=== PATIENT | female | born 1990 | race Caucasian/White ===

== ENCOUNTER 2017-01-18 11:03 | Emergency (ER) | payer OTHER ==
[2017-01-18 11:09] VITALS: BP 123/96; PULSE 90; TEMP 98.3; BMI 38.7
--- NOTE | 2017-01-18 12:01 | PDOC ---
Attending Attestation - Resident Resident Name: Isai Phoenix - HPI HPI: 01/18/17 13:15 pt presents to the ED complaining of a two day history of frontal pressure. Denies fever, nausea, vomiting. also complains of positional vertigo. - Physicial Exam PE: 01/18/17 13:19 Exam is unremarkable. minimal tenderness over the maxillary sinuses. - Medical Decision Making 01/18/17 13:21 Patient presents to the ED with mild, non specific headache and mild vertigo. No concern for subarachnoid. no symptoms consistent with cellulitis. Will discharge home with motrin and meclizine.
[2017-01-18] MEDS ORDERED: diphenhydrAMINE HCL 50 MG CAPSULE PO ONE (12:03)
[2017-01-18] MEDS ORDERED: FLUTICASONE PROP 0.05% 16 GM NASAL SPRAY NS ONE (12:03)
[2017-01-18] MEDS ORDERED: OXYMETAZOLINE 0.05% NASAL SOLUTION 15 ML BOTTLE NS PRN (12:03)
[2017-01-18] MEDS ORDERED: diphenhydrAMINE HCL 25 MG CAPSULE (FP) PO ONE ×2 (12:18)
--- NOTE | 2017-01-18 12:29 | PDOC ---
History of Present Illness - General Chief Complaint: Headache Stated Complaint: HEADACHE Time Seen by Provider: 01/18/17 11:45 History Source: Patient, Engineering Systems Analyst Used (nurse) Exam Limitations: No Limitations - History of Present Illness Initial Comments: 01/18/17 12:23 The patient is a 26F with a PMH of vertigo and hypercholesterolemia who is presenting with 4 days of b/l headache which originates in the sinuses and radiates to the occiput. She describes the pain as a pressure that is associated with dizziness. ROS+: headache, vertiginous sx, photophobia ROS-: fever, chills, nausea, vomiting, changes in vision, weakness, tingling, numbness, abdominal pain, dysuria Allergies: NKDA Social: does not smoke, drink, or use recreational drugs Surgeries: cholecystectomy 3 years ago Past History - Past Medical History Allergies/Adverse Reactions: Allergies Allergy/AdvReac Type Severity Reaction Status Date / Time No Known Allergies Allergy Verified 01/18/17 11:06 Home Medications: Ambulatory Orders Meclizine HCl [Antivert -] 25 mg PO TID #21 tablet 01/18/17 Diabetes: Yes (border line) Seizures: Yes (x1) - Surgical History Cholecystectomy: Yes - Psycho/Social/Smoking Cessation Hx Anxiety: No Suicidal Ideation: No Smoking History: Never smoked Have you smoked in the past 12 months: No Information on smoking cessation initiated: No Hx Alcohol Use: No Drug/Substance Use Hx: No Substance Use Type: None Review of Systems - Review of Systems Able to Perform ROS?: Yes Is the patient limited Frisian proficient: Yes Constitutional: No: Chills, Fever HEENTM: Yes: Other (maxillary pain radiating to occiput). No: Blurred Vision Respiratory: No: Cough, Shortness of Breath Cardiac (ROS): No: Chest Pain, Lightheadedness ABD/GI: Yes: Other (abd) : No: Dysuria Neurological: Yes: Headache. No: Numbness, Tingling, Weakness *Physical Exam - Vital Signs Last Vital Signs Temp Pulse Resp BP Pulse Ox 98.3 F 90 18 123/96 100 01/18/17 11:06 01/18/17 11:06 01/18/17 11:06 01/18/17 11:06 01/18/17 11:06 - Physical Exam General Appearance: Yes: Appropriately Dressed, Obese. No: Apparent Distress HEENT: positive: Tonsillar Erythema (very mild), Other (tenderness to palpation over maxillary sinuses). negative: Scleral Icterus (R), Scleral Icterus (L), Tonsillar Exudate Neck: negative: Lymphadenopathy (R), Lymphadenopathy (L) Respiratory/Chest: positive: Lungs Clear, Normal Breath Sounds. negative: Respiratory Distress Cardiovascular: positive: Regular Rhythm, Regular Rate, S1, S2 Gastrointestinal/Abdominal: positive: Normal Bowel Sounds, Flat, Soft. negative : Tender Extremity: positive: Normal Inspection. negative: Swelling Integumentary: positive: Normal Color, Dry, Warm Neurologic: positive: Normal Mood/Affect, Normal Response ED Treatment Course - Medications Given in the ED: ED Medications Discontinued Medications Generic Name Dose Route Start Last Admin Trade Name Freq PRN Reason Stop Dose Admin Diphenhydramine HCl 50 mg 01/18/17 12:03 01/18/17 12:20 Benadryl - PO 01/18/17 12:04 50 mg ONCE ONE Administration Medical Decision Making - Medical Decision Making 01/18/17 12:38 Patient is a 26F with a hx of vertigo who presents with a headache and dizziness x 4 days. On the differential is vertigo exacerbation, sinusitis, migraine headaches. She was given nasal anti-allergy medications and benadryl. She was also given motrin and meclazine to combat her headache. 01/18/17 12:50 Patient states she is feeling much better after medication administration. She is ready for d/c. *DC/Admit/Observation/Transfer Diagnosis at time of Disposition: Headache - Discharge Dispostion Disposition: HOME Condition at time of disposition: Stable Admit: No - Prescriptions Prescriptions: Meclizine HCl [Antivert -] 25 mg PO TID #21 tablet - Referrals Referrals: Abeba Mattson MD [Primary Care Provider] - - Attestations Physician Attestion: 01/18/17 12:39 I, Dr. Isai Phoenix, attest that this document has been prepared under my direction and personally reviewed by me in its entirety. I further attest, that it accurately reflects all work, treatment, procedures and medical decision -making performed by me.
[2017-01-18] MEDS ORDERED: MECLIZINE HCL 25 MG TABLET (FP) PO ONE (12:32)
[2017-01-18] MEDS ORDERED: IBUPROFEN 400 MG TABLET (FP) PO ONE ×2 (12:32→12:40)
[2017-01-18] MEDS ORDERED: MECLIZINE HCL 25 MG TABLET (FP) ONE (12:40)
== END 2017-01-18 13:26 | disposition home or self-care (01) ==
LOC: JER 11:03
DX: R51 Headache (principal)
CPT/HCPCS: 99281-25

== ENCOUNTER 2017-06-28 13:41 | Emergency (ER) | payer OTHER ==
[2017-06-28 13:57] VITALS: BP 123/68; PULSE 101; TEMP 98.3; BMI 39.0
[2017-06-28] MEDS ORDERED: NAPROXEN 500 MG TABLET (FP) PO ONE (14:47)
[2017-06-28] MEDS ORDERED: NAPROXEN 500 MG TABLET (FP) ONE (14:51)
--- NOTE | 2017-06-28 14:54 | PDOC ---
History of Present Illness - General Chief Complaint: Pain Stated Complaint: WRIST SWELLING AND PAIN Time Seen by Provider: 06/28/17 14:37 History Source: Patient Exam Limitations: No Limitations - History of Present Illness Initial Comments: 06/28/17 15:28 Chief complaint: Right second pain for the last 3 days History of present illness: Patient is a 27 year old planning of pain to her right 2ND MCP joint minimal swelling 3 days. Patient does not remember any fall or injury. Patient reports the pain currently as a 7 out of 10 throbbing. Patient reports that last night pain was a 10 out of 10. Patient denies any chance of is on control pills. Patient does not have any decreased range of motion of her right hand or metacarpals or digits. Patient denies holding her phone or other items more in this hand even though this is her right hand is dominant. No numbness of her hand. Occurred: reports: other (3 days ) Severity: reports: severe (rt. 2nd mcp jt pain x 3 days ) Upper Extremity Pain Location: right: other (2nd mcp jt ) Method of Injury: reports: unknown Extremity Pain Location - Extremity Pain Location Extremity Pain Locations: right: other (2 nd mcp jt) Past History - Past Medical History Allergies/Adverse Reactions: Allergies Allergy/AdvReac Type Severity Reaction Status Date / Time No Known Allergies Allergy Verified 06/28/17 13:57 Home Medications: Ambulatory Orders Naproxen [Naprosyn -] 500 mg PO BID PRN #14 tablet MDD 2 06/28/17 COPD: No Diabetes: No Seizures: No - Surgical History Cholecystectomy: Yes - Suicide/Smoking/Psychosocial Hx Smoking History: Never smoked Have you smoked in the past 12 months: No Hx Alcohol Use: No Drug/Substance Use Hx: No Substance Use Type: None Review of Systems - Review of Systems Able to Perform ROS?: Yes Constitutional: No: Symptoms Reported HEENTM: No: Symptoms Reported Respiratory: No: Symptoms reported Cardiac (ROS): No: Symptoms Reported ABD/GI: No: Symptoms Reported : No: Symptoms Reported Musculoskeletal: Yes: Joint Pain (rt.2nd mcp jt), Joint Swelling (slight swelling rt.mcp jt ) Integumentary: No: Symptoms Reported Neurological: No: Symptoms reported *Physical Exam - Vital Signs Last Vital Signs Temp Pulse Resp BP Pulse Ox 98.3 F 101 H 20 123/68 100 06/28/17 13:54 06/28/17 13:54 06/28/17 13:54 06/28/17 13:54 06/28/17 13:54 - Physical Exam General Appearance: Yes: Appropriately Dressed Comments:: 06/28/17 14:51 radial pulse rt.. 4 + Extremity: positive: Normal Capillary Refill, Normal Range of Motion (rt. finger , rt. mcp jt ), Tender (rt. index mcp jt ), Swelling (minimal swelling rt.mcp jt ), Other (rt. index finger full range of motion, no erythema ). negative: Normal Inspection Integumentary: positive: Normal Color Neurologic: positive: Normal Response, Respond to painful stimul. negative: Numbness, Sensory Deficit (rt. hand ) ED Treatment Course - RADIOLOGY Radiology Studies Ordered: Category Date Time Status HAND- RIGHT [RAD] Stat Radiology 06/28/17 14:48 Ordered Medical Decision Making - Medical Decision Making 06/28/17 15:33 Patient is a 27 year old planning of pain to her right 2ND MCP joint minimal swelling 3 days. Patient does not remember any fall or injury. Patient reports the pain currently as a 7 out of 10 throbbing. Patient reports that last night pain was a 10 out of 10. Patient denies any chance of is on control pills. Patient does not have any decreased range of motion of her right hand or metacarpals or digits. Patient denies holding her phone or other items more in this hand even though this is her right hand is dominant. No numbness of her hand. rt. 2 nd MCP jt tenderness r/o kacey abnormality rt.hand PLAN: xray rt. hand no fracture or dislocations naprosyn 500 mg po now bid prn # 14 tabs follow up with orthopedist if symptoms persist *DC/Admit/Observation/Transfer Diagnosis at time of Disposition: Pain, joint, hand, right - Discharge Dispostion Disposition: HOME Condition at time of disposition: Stable - Referrals Referrals: Shakila Oneil MD [Primary Care Provider] - Ralph Lopez MD [Staff Physician] - - Patient Instructions Additional Instructions: Follow-up with orthopedist if pain persist and right hand Return to emergency room if any redness area involved or increased swelling or numbness of area Patient voiced understanding of discharge instructions and all questions were answered Hacer un seguimiento con un ortopedista si el dolor persiste y la mano derecha Regrese a la mica de emergencias si se observa aleksandra de enrojecimiento o aumento de hinchazn o entumecimiento del aleksandra El paciente expres comprensin de las instrucciones de tamara y todas las preguntas fueron respondidas - Post Discharge Activity
== END 2017-06-28 15:47 | disposition home or self-care (01) ==
LOC: JERFT 13:41
DX: M79.641 Pain in right hand (principal)
CPT/HCPCS: 73130-TC-RT; 99281-25